=== PATIENT | female | born 1970 | race Caucasian/White ===

== ENCOUNTER 2024-07-25 10:24 | Emergency (ER) | payer OTHER ==
[2024-07-25 10:50] VITALS: RESP 16; BMI 31.8
[2024-07-25 12:33] LABS: ABSOLUTE IMMATURE GRANULOCYTES 0.07 x10^3/uL (0.0-0.031); BASOPHILS # 0.02 x10^3/uL (0.01-0.08); EOSINOPHIL % 0.5 % (0.7-5.8); EOSINOPHILS # 0.04 x10^3/uL (0.04-0.36); HEMATOCRIT 44.2 % (34.1-44.9); HEMOGLOBIN 13.7 g/dL (11.2-15.7); MEAN CELL VOLUME 82.9 fl (79.4-94.8); MEAN PLT VOLUME 12.9 fl (9.4-12.3); MONOCYTE # 0.45 x10^3/uL (0.24-0.86); MONOCYTE % 5.1 % (4.7-12.5); PLATELET COUNT 175 x10^3/uL (182-369); RDW 14.1 % (12.3-16.6)
[2024-07-25] MEDS ORDERED: ONDANSETRON *ODT* 4 MG TABLET ONE (12:51)
[2024-07-25 12:56] LABS: POTASSIUM 3.7 mmol/L (3.5-5.1)
[2024-07-25] MEDS ORDERED: ONDANSETRON 4 MG/2 ML VIAL ONE (12:56)
[2024-07-25] MEDS ORDERED: FAMOTIDINE 20 MG/50 ML IVPB 20 MG/50 ML MG IVPB ONE (12:57)
[2024-07-25 12:58] LABS: CALCIUM 10.1 mg/dL (8.5-10.1)
[2024-07-25 12:59] LABS: ALBUMIN 3.9 g/dl (3.4-5.0); BLOOD UREA NITROGEN 10.2 mg/dL (7-18)
[2024-07-25 13:02] LABS: CREATININE 0.6 mg/dL (0.55-1.3)
[2024-07-25 13:04] LABS: BILIRUBIN,TOTAL 0.8 mg/dL (0.2-1); TOT PROT 8.2 g/dl (6.4-8.2)
[2024-07-25] MEDS: FAMOTIDINE 20 MG/50 ML IVPB 20 MG in PREMIX 50 IVPB ONE (13:06)
[2024-07-25] MEDS: ONDANSETRON 4 MG/2 ML VIAL IVPB ONE (13:06)
[2024-07-25] MEDS: SODIUM CHLORIDE 500 ML IV STA (13:06)
[2024-07-25 14:24] VITALS: BP 170/72; PULSE 74; TEMP 99.1
== END 2024-07-25 16:02 | disposition home or self-care (01) ==
LOC: JER 10:24
PROC: 3E033GC Introduction of Other Therapeutic Substance into Peripheral Vein, Percutaneous Approach (ICD-10-PCS; principal; 2024-07-25)
PROC: 3E033GC Introduction of Other Therapeutic Substance into Peripheral Vein, Percutaneous Approach (ICD-10-PCS; 2024-07-25)
PROC: 3E0337Z Introduction of Electrolytic and Water Balance Substance into Peripheral Vein, Percutaneous Approach (ICD-10-PCS; 2024-07-25)
DX: K21.9 Gastro-esophageal reflux disease without esophagitis (principal); R10.11 Right upper quadrant pain; R11.2 Nausea with vomiting, unspecified
CPT/HCPCS: 36415; 76705-TC; 80053; 83690; 84484; 85025; 93005; 93010; 99285-25

== ENCOUNTER 2024-08-15 09:50 | Emergency (ER) | payer OTHER ==
[2024-08-15 10:02] VITALS: BP 179/77; PULSE 89; RESP 18; TEMP 99.1; BMI 39.7
[2024-08-15] MEDS ORDERED: ACETAMINOPHEN 325 MG TABLET (FP) ONE (10:41)
[2024-08-15] MEDS: ACETAMINOPHEN 325 MG TABLET (FP) PO ONE (10:43)
== END 2024-08-15 11:59 | disposition home or self-care (01) ==
LOC: JER 09:50 → JERFT 09:50
DX: M25.562 Pain in left knee (principal); M25.462 Effusion, left knee; R20.0 Anesthesia of skin
CPT/HCPCS: 73562-TC-LT-FY; 99285-25